=== PATIENT | male | born 1960 | race Caucasian/White ===

== ENCOUNTER 2022-02-27 05:57 | Day surgery (SDC) | payer OTHER ==
[~2022-02-27] VITALS: Ht 180.3 cm; Wt 85.4 kg
[~2022-02-27 05:57] MED LIST: HYDROCHLOROTH12.5 M1 PO; KAPSPARGO SPRIN25 MG PO; MELOXICAM15 MG PO; OMEPRAZOLE20 MG PO; POLYETHYLENE G500 G3 MISC
--- NOTE | 2022-02-27 08:12 | NUR ---
02/27/22 0812 Roseanne Lozano [id number]-PATIENT ARRIVED TO PACU ON 3L NC RR EVEN PLACED ON RA. PATIENT AWAKE LAYING LEFT LATERAL DENIES PAIN OR NAUSEA. ABDOMEN SOFT ENCOURAGED TO PASS GAS. IVF INFUSING. GUARDS AT BEDSIDE. PATIENT REPOSTIONED SELF TO BACK HOB ELEVATED.
--- NOTE | 2022-02-27 14:40 | OR ---
[facility] [address], [place] [address] Signed DATE OF OPERATION: 02/27/2022 SURGEON: Jose Luis Baxter MD PREOPERATIVE DIAGNOSES: 1. Family history of colon cancer (father and three brothers). 2. Last colonoscopy in [place], [place], uncertain regarding polyps; currently asymptomatic. POSTOPERATIVE DIAGNOSES: 1. Sigmoid diverticulosis. 2. Internal hemorrhoids. PROCEDURE: Total colonoscopy to cecum. ANESTHESIA: Intravenous sedation, fentanyl 100 mcg and Versed 4 mg. INDICATIONS: This 61-year-old white man is a prisoner at [facility], evaluated by assumed presumably by GEORGIE Uriarte at [facility]. He has family history of colon cancer in his father and three brothers. He underwent colonoscopy greater than five years ago in [place], [place], which was said to have possible polyps of actual record that is uncertain. He is admitted at this time to undergo surveillance colonoscopy. He has no symptoms of bleeding, diarrhea, or constipation. He understands risk of bleeding, infection, and perforation and wished to proceed. FINDINGS: The prep was excellent. Complete colonoscopy was undertaken to the cecum without question. There were numerous diverticula of the sigmoid and left colon, but no evidence of polyps. Retroflexed view confirmed internal hemorrhoids. DESCRIPTION OF PROCEDURE: The patient was brought to the endoscopy suite and placed in lateral decubitus position given intravenous sedation to the point of slurred speech and nystagmus with full cardiopulmonary monitoring. Digital rectal examination was normal. An Olympus video colonoscope was passed into the rectum and manipulated throughout the colon noting diverticula of the sigmoid and left colon. The scope was advanced Electronically Signed By: JOSE LUIS BAXTER MD 02/27/22 1440 PATIENT NAME: CATHY BERMUDEZ OPERATIVE REPORT DATE OF : 60 REPORT #: [id number] PHYSICIAN: JOSE LUIS BAXTER MD PCP: DODIE CLEMONS REPORT IS CONFIDENTIAL AND NOT TO BE RELEASED WITHOUT AUTHORIZATION [facility] [address], [place] [address] Signed ultimately to the cecum. The ileocecal valve and appendiceal orifice were normal. Scope was withdrawn from that point. Examination throughout showed no sign of abnormality other than diverticula. Retroflexed view of the rectum confirmed internal hemorrhoids. The scope was straightened, withdrawn, and removed, and the patient was taken to the recovery room in good condition. CONCLUDING DIAGNOSES: 1. Diverticulosis, no evidence of polyps. 2. Internal hemorrhoids. PLAN: Recommend high-fiber diet and repeat colonoscopy in 5 years based on family history of colon cancer in multiple family members. He will return to the ongoing care of GEORGIE Zuluaga at [facility]. MD MINGO Xiong/KIM /[id number] cc: GEORGIE Moreno Copies: DODIE CLEMONS ~ Electronically Signed By: JOSE LUIS BAXTER MD 02/27/22 1440 PATIENT NAME: CATHY BERMUDEZ OPERATIVE REPORT DATE OF : 60 REPORT #: [id number] PHYSICIAN: JOSE LUIS BAXTER MD PCP: DODIE CLEMONS REPORT IS CONFIDENTIAL AND NOT TO BE RELEASED WITHOUT AUTHORIZATION
== END 2022-02-27 08:45 | disposition home or self-care (01) ==
LOC: OPS 05:57 → DS 05:57 → OPS 07:30
PROVIDERS: ATTEND Surgery
PROC: 0DJD8ZZ Inspection of Lower Intestinal Tract, Via Natural or Artificial Opening Endoscopic (ICD-10-PCS; principal; 2022-02-27 07:30)
DX: Z12.11 Encounter for screening for malignant neoplasm of colon (principal); K57.30 Diverticulosis of large intestine without perforation or abscess without bleeding; K64.8 Other hemorrhoids; I10 Essential (primary) hypertension; K21.9 Gastro-esophageal reflux disease without esophagitis; Z80.0 Family history of malignant neoplasm of digestive organs; Z87.11 Personal history of peptic ulcer disease
CPT/HCPCS: 99153; G0500; J2250; J3010; J7121